=== PATIENT | male | born 1985 | race Two or more races ===

== ENCOUNTER 2021-04-26 03:21 | Emergency (ER) | payer OTHER ==
[~2021-04-26] VITALS: Ht 182.9 cm; Wt 77.1 kg
[2021-04-26 04:16] VITALS: BP 128/63
[2021-04-26] MEDS ORDERED: AMOX-430 PO (04:25)
[2021-04-26] MEDS ORDERED: AMOX/CLAVULANATE 875 MG TABLET ONE (04:29)
[2021-04-26] MEDS ORDERED: AMOX/CLAVULANATE 875 MG TABLET PO ONE (04:30)
--- NOTE | 2021-04-26 04:50 | NUR ---
Patient discharged to home in stable condition. Written and verbal after care instructions given. Patient verbalizes understanding of instruction.
== END 2021-04-26 05:49 | disposition home or self-care (01) ==
LOC: ER 03:29
DX: S01.331A Puncture wound without foreign body of right ear, initial encounter (principal); Z60.2 Problems related to living alone; W54.0XXA Bitten by dog, initial encounter; Y93.89 Activity, other specified; Y92.89 Other specified places as the place of occurrence of the external cause; Y99.8 Other external cause status
CPT/HCPCS: 99283; A6403